=== PATIENT | male | born 1970 | race African-American/Black ===

== ENCOUNTER 2020-12-26 04:34 | Emergency (ER) | payer MEDICAID ==
[~2020-12-26] VITALS: Ht 170.2 cm; Wt 137.0 kg
[2020-12-26 05:40] LABS: BASOPHILS % 0.8 % (0.0-2.0); EOSINOPHILS % 2.5 % (0.0-5.0); HEMOGLOBIN. 11.3 g/dL (14.0-18.0); LYMPHOCYTES % 18.5 % (20.0-50.0); MEAN CORPUSCULAR HEMOGLOBIN 23.1 pg (28.0-32.0); MEAN CORPUSCULAR VOLUME 73.1 fL (80.0-94.0); MEAN PLATELET VOLUME 7.2 fl (7.4-10.4); MONOCYTES % 5.9 % (2.0-8.0); NEUTROPHILS % 72.3 % (40.0-76.0); PLATELET 562 x1000/uL (130-400); RED BLOOD CELL COUNT 4.92 mill/uL (4.7-6.1); RED CELL DISTRIBUTION WIDTH 19.8 % (11.6-14.6)
[2020-12-26] MEDS ORDERED: ONDANSETRON HCL 4MG/2ML INJ IV STA (05:44)
[2020-12-26] MEDS ORDERED: KETOROLAC 30MG/ML VIAL IV STA (05:44)
[2020-12-26] MEDS ORDERED: SODIUM CHLORIDE 0.9% 1,000 ML IV ONE (05:45)
[2020-12-26] MEDS ORDERED: MAGNESIUM CITRATE 300ML SOLUTION PO ONE (05:45)
[2020-12-26 05:48] LABS: CHLORIDE 101 mEq/L (98-107)
[2020-12-26 05:49] LABS: INR 1.1; PROTHROMBIN TIME 11.5 sec (9.6-11.0)
[2020-12-26 07:00] VITALS: BP 133/66
[2020-12-26] MEDS ORDERED: MAGN296S70 PO (07:46)
[2020-12-26] MEDS ORDERED: POLY17PO3 PO (07:46)
[2020-12-26] MEDS ORDERED: LACTULOSE 20G/30ML UDC PO ONE (08:00)
== END 2020-12-26 08:41 | disposition home or self-care (01) ==
LOC: ER 04:34
DX: K59.00 Constipation, unspecified (principal); E11.9 Type 2 diabetes mellitus without complications; I10 Essential (primary) hypertension; F32.A Depression, unspecified
CPT/HCPCS: 36415; 74176; 80053; 82962; 83690; 85025; 85610; 86850; 86900; 86901; 96361; 96374; 96375; 99284; J1885; J2405; J7030